=== PATIENT | male | born 2000 | race Caucasian/White ===

== ENCOUNTER 2021-04-02 04:58 | Inpatient (IN) | payer OTHER ==
[~2021-04-02] VITALS: Ht 167.6 cm; Wt 64.6 kg
[2021-04-02] MEDS ORDERED: NS 1,000 ML IV ONE ×3 (07:30→09:25)
[2021-04-02] MEDS ORDERED: ONDANSETRON 4MG/2ML VIAL IV ONE ×2 (07:30→07:50)
[2021-04-02 08:48] LABS: BASO # 0.1 10^3/uL (0.0-0.2); BASO % 0.3 % (0.0-1.0); HEMATOCRIT 47.7 % (42.0-52.0); HEMOGLOBIN 15.7 g/dl (13.5-17.5); LYMPH # 0.8 10^3/uL (1.5-5.0); LYMPH % 4.5 % (24.0-44.0); MEAN CORPUSCULAR HEMOGLOBIN 26.7 pg (27.0-33.0); MEAN CORPUSCULAR HGB CONC 32.9 g/dl (32.0-36.5); MEAN CORPUSCULAR VOLUME 81.3 fl (80.0-96.0); MONO # 0.8 10^3/uL (0.0-0.8); MONO % 4.3 % (2.0-8.0); NEUTROPHILS # 16.6 10^3/uL (1.5-8.5); NEUTROPHILS % 90.4 % (36.0-66.0); PLATELET COUNT, AUTOMATED 275 10^3/uL (150-450); RED BLOOD COUNT 5.87 10^6/uL (4.30-6.10); WHITE BLOOD COUNT 18.4 10^3/uL (4.0-10.0)
[2021-04-02 09:27] LABS: ALBUMIN 4.3 GM/DL (3.2-5.2); ALT/SGPT 27 U/L (12-78); BILIRUBIN,DIRECT < 0.1 MG/DL (0.0-0.2); BILIRUBIN,TOTAL 0.9 MG/DL (0.2-1.0); LIPASE 80 U/L (73-393); TOTAL PROTEIN 8.7 GM/DL (6.4-8.2)
[2021-04-02] MEDS ORDERED: ISOVUE-370 76% 100ML VIAL As Ordered ONE (10:11)
--- NOTE | 2021-04-02 11:23 | REP ---
INDICATION: elev wbc; vomiting/diarrhea/pain. COMPARISON: None TECHNIQUE: Axial contrast-enhanced images from the lung bases to the pubic symphysis using 100 cc Isovue 370 intravenous contrast material. Coronal and sagittal reformations obtained. This CT examination was performed using the following dose reduction techniques: Automated exposure control, adjustment of mA and/or kv according to the patient's size, and the use of iterative reconstruction technique. FINDINGS: Liver, spleen/splenules, pancreas, gallbladder, bilateral adrenal glands and kidneys are normal. The enteric system including stomach, small, and large bowel appears normal. No evidence for obstruction or acute inflammatory process. Normal terminal ileum and appendix are identified in the right lower quadrant. Pelvis demonstrates normal bladder and age-appropriate prostate/seminal vesicles. No ascites. No free air. No intraperitoneal or retroperitoneal adenopathy. Abdominal aorta and vasculature appear normal. Musculoskeletal structures are intact and without acute osseous abnormality. IMPRESSION: No acute abdominopelvic pathology appreciated. <Electronically signed by Andrea Tran > 04/02/21 [id number]
[2021-04-02] MEDS ORDERED: LevoFLOXacin IV 750 MG in IV 1 EA IV ONE (11:50)
[2021-04-02] MEDS ORDERED: NS 1,000 ML IV SCH (11:50)
[2021-04-02] MEDS ORDERED: ONDANSETRON 4MG/2ML VIAL IV PRN (12:40)
[2021-04-02] MEDS ORDERED: HOME MED LIST COMPLETE! XX SCH (12:50)
--- NOTE | 2021-04-02 12:55 | HPEPDOC ---
[facility] Medical History & Physical Date of Admission Apr 02, 2021 Date of Service: Apr 02, 2021 History and Physical Chief complaint: Presented to the ER with nausea, vomiting and diarrhea since History of present illness: Patient is a 20-year-old male presented to the emergency room with nausea, vomiting, diarrhea since . Patient has reported that since hes experienced greater than 10 episodes of vomiting. Patient is vomitus as green without any evidence of blood. Patient also reports associated diarrhea about 2 times a day, described as watery/green without any evidence of blood, Patient also reports associated upper abdominal pain described as 7/10 aching occurring intermittently. No alleviating factors and aggravated with food. Patient denies any chest pain, shortness breath, palpitations or cough. Denies any urinary discomfort. He has reported chills at home without any document it fevers. Reports a poor appetite recently. Past Medical History: Denies any past medical history Past Surgical History: Denies any past surgical history Allergies: See below Medications: See below Family History: - She reports that his maternal grandmother has a history of [address] [place] breast cancer Social History: - Denies the use of alcohol or illicit drugs; patient reports that he is a smoker - Denies recent travel or sick contacts - [place] - Occupation; patient is part of the [employer] ([employer]) Review of Systems: 10 point review of systems complete, all negative otherwise stated in HPI Physical exam: - Vitals: BP [149/67], HR [71], RR [20], Sat [100%RA], Temp [97.2F] - General: Lying in bed, Speaking in full sentences, AAOx3 - HEENT: NC, AT, PERRLA - CVS: RRR, +S1S2, - Murmurs / rubs / gallops - Lungs: Fair air entry bilaterally, No appreciable wheezing / rales / rhonchi - Abdomen: Soft, Non-distended, Epigastric tenderness - Extremities: No lower extremity edema, No calf tenderness - Neuro: No focal motor or sensory deficit - Skin: No visible rashes Labs: See below Imaging: CT abdomen / pelvis 04/02: No acute abdominopelvic pathology appreciated. EKG: See below Assessment and Plan: Nausea / Vomiting /Diarrhea - likely 2/2 viral gastroenteritis, possible bacterial - Patient presented to ER with complaints of the above since - Patient is hemodynamically stable and afebrile - Physical reveals epigastric tenderness - Leukocytosis with neutrophil predominance; lactic acidosis - Imaging noted above - Will check GI Panel - Patient was given dose of Levofloxacin in the ER - Will continue antibiotics based on GI panel Leukocytosis - likely 2/2 above - Respiratory panel negative - Will check UA / Blood cultures / PCT - See above Lactic acidosis - likely 2/2 dehydration - s/p 2 L NS in the ER - Will repeat lactic acid now - c/w Normal saline DVT prophylaxis - Will start Heparin Vital Signs Vital Signs Date Time Temp Pulse Resp B/P (MAP) Pulse Ox O2 Delivery O2 Flow Rate FiO2 04/02/21 04:58 97.2 71 20 149/67 (94) 100 Room Air Laboratory Data Labs 24H Laboratory Tests 2 04/02/21 07:50: Immature Granulocyte % (Auto) 0.5, Neutrophils (%) (Auto) 90.4H, Lymphocytes (%) (Auto) 4.5L, Monocytes (%) (Auto) 4.3, Eosinophils (%) (Auto) 0.0, Basophils (%) (Auto) 0.3, Neutrophils # (Auto) 16.6H, Lymphocytes # (Auto) 0.8L, Monocytes # (Auto) 0.8, Eosinophils # (Auto) 0.0, Basophils # (Auto) 0.1, Nucleated Red Blood Cells % (auto) 0.0, Total Bilirubin 0.9, Direct Bilirubin < 0.1, Aspartate Amino Transf (AST/SGOT) 36, Alanine Aminotransferase (ALT/SGPT) 27, Alkaline Phosphatase 72, Total Protein 8.7H, Albumin 4.3, Albumin/Globulin Ratio 1.0, Lipase 80 04/02/21 08:36: POC Glucose (Misc Panel) 142H, POC Sodium (Misc Panel) 138, POC Potassium (Misc Panel) 4.7, POC Chloride (Misc Panel) 105, POC Total CO2 (Misc Panel) 25.0, POC Blood Urea Nitrogen (Misc Panel 20, POC Ionized Calcium (Misc Panel) 4.3L, POC Creatinine (Misc Panel) 1.0, POC Hematocrit (Misc Panel) 49.0 04/02/21 08:47: POC Lactate (Misc Panel) 3.06*H CBC/BMP Laboratory Tests 04/02/21 07:50 Microbiology Microbiology 04/02/21 Respiratory Virus Panel (PCR) ([facility]) - Final, Complete Home Medications No Active Prescriptions or Reported Meds Allergies Coded Allergies: amoxicillin (Verified Allergy, Intermediate, rash, 04/02/21) clavulanic acid (Verified Allergy, Intermediate, rash, 04/02/21) NATALY YANG MD Apr 02, 2021 12:55
[2021-04-02] MEDS: HEPARIN SOD (PORCINE) 5000UNITS/ML 1ML VIAL/SYRINGE SC SCH ×2 (14:00→22:09)
[2021-04-02 14:11] LABS: ALT/SGPT 21 U/L (12-78); BLOOD UREA NITROGEN 12 MG/DL (7-18); CALCIUM LEVEL 9.4 MG/DL (8.5-10.1); CARBON DIOXIDE LEVEL 22 MEQ/L (21-32); CHLORIDE LEVEL 106 MEQ/L (98-107); CREATININE FOR GFR 1.13 MG/DL (0.70-1.30); GLUCOSE, FASTING 114 MG/DL (70-100); SODIUM LEVEL 138 MEQ/L (136-145); TOTAL PROTEIN 7.9 GM/DL (6.4-8.2)
[2021-04-02] MEDS: NS 1,000 ML IV SCH ×2 (15:51→22:09)
[2021-04-02] MEDS: PANTOPRAZOLE 40MG VIAL (C9113 PER 1) IV SCH (16:10)
[2021-04-02 18:00] VITALS: BP 151/82
[2021-04-02] MEDS: METOCLOPRAMIDE INJ 10MG/2ML VIAL (J2765 PER 1) IV PRN (19:38)
[2021-04-02] MEDS: ACETAMINOPHEN TAB 650MG DOSE (2X325MG) PO PRN (19:38)
[2021-04-02 20:00] VITALS: BP 123/54
[2021-04-02] MEDS ORDERED: PROMETHAZINE INJ 25 MG/ML VIAL (J2550) IV ONE (22:50)
[2021-04-02] MEDS ORDERED: KETOROLAC 30 MG/ML 1ML VIAL IV ONE (22:50)
[2021-04-03] MEDS: PANTOPRAZOLE 40MG VIAL (C9113 PER 1) IV SCH ×2 (00:43→12:50)
[2021-04-03 04:52] VITALS: BP 145/77
[2021-04-03] MEDS: METOCLOPRAMIDE INJ 10MG/2ML VIAL (J2765 PER 1) IV PRN (06:04)
[2021-04-03] MEDS: ACETAMINOPHEN TAB 650MG DOSE (2X325MG) PO PRN ×2 (06:04→20:14)
[2021-04-03] MEDS: HEPARIN SOD (PORCINE) 5000UNITS/ML 1ML VIAL/SYRINGE SC SCH ×3 (06:04→22:00)
[2021-04-03 06:25] LABS: BASO # 0.1 10^3/uL (0.0-0.2); BASO % 0.4 % (0.0-1.0); EOS % 0.1 % (0.0-3.0); HEMATOCRIT 39.8 % (42.0-52.0); LYMPH # 1.9 10^3/uL (1.5-5.0); MEAN CORPUSCULAR HGB CONC 33.4 g/dl (32.0-36.5); MEAN CORPUSCULAR VOLUME 80.7 fl (80.0-96.0); MONO % 8.8 % (2.0-8.0); NEUTROPHILS # 8.6 10^3/uL (1.5-8.5); NEUTROPHILS % 74.4 % (36.0-66.0); PLATELET COUNT, AUTOMATED 238 10^3/uL (150-450); RED BLOOD COUNT 4.93 10^6/uL (4.30-6.10); WHITE BLOOD COUNT 11.6 10^3/uL (4.0-10.0)
[2021-04-03 06:29] LABS: HEMOGLOBIN 13.3 g/dl (13.5-17.5)
[2021-04-03 06:45] LABS: BLOOD UREA NITROGEN 14 MG/DL (7-18); CARBON DIOXIDE LEVEL 24 MEQ/L (21-32); CHLORIDE LEVEL 109 MEQ/L (98-107); CREATININE FOR GFR 1.16 MG/DL (0.70-1.30); GLUCOSE, FASTING 107 MG/DL (70-100); SODIUM LEVEL 140 MEQ/L (136-145)
[2021-04-03 06:46] LABS: MAGNESIUM LEVEL 1.9 MG/DL (1.4-2.0)
[2021-04-03] MEDS: NS 1,000 ML IV SCH ×2 (08:40→18:31)
[2021-04-03] MEDS: PROMETHAZINE INJ 25 MG/ML VIAL (J2550) IV PRN (12:50)
[2021-04-03 14:00] VITALS: BP 142/75
--- NOTE | 2021-04-03 16:43 | IPNPDOC ---
Text Note Date of Service The patient was seen on 04/03/21. NOTE Subjective: -Persisting N/V, two episodes of emesis this AM per nursing report were non- bloody and non-bilious. No reports of further diarrhea, afebrile -Patient asked nursing to turn off IV fluids as he believes NS is making him nauseous, discussed that this is unlikely and would ideally want to continue hydration until emesis resolves and PO improves Objective: Vitals: please see below General: NAD, well appearing young man HEENT: NCAT, PERRLA, EOMI, MMM CVS: RRR, +S1S2, no m/r/g noted Lungs: CTAB, breathing comfortably on room air, speaking in full sentences, no appreciable wheezing / rales / rhonchi Abdomen: Soft, non-distended, mild epigastric tenderness on palpation, normoactive sounds Extremities: No lower extremity edema, No calf tenderness, WWP Neuro: No focal motor or sensory deficit Skin: No visible rashes Labs: Reviewed WBC 11.6 hgb 13.3 platelets 238 na 140 K 4 Cr 1.16 mag 1.9 pending GI panel Imaging: CT abdomen / pelvis 04/02: No acute abdominopelvic pathology appreciated. Assessment: 20 yo M without significant medical history who was previously in excellent health who presented with acute N/V/D and abdominal pain with thus far workup n otable for leukocytosis that is improving with otherwise benign imaging and workup thus far, with persisting N/V likely secondary to gastroenteritis likely from viral origin. Nausea / Vomiting /Diarrhea - likely 2/2 viral gastroenteritis, unlikely bacterial - 5d of symptoms thus far, with N/V, now improving diarrhea, afebrile and no GI imaging abnormalities - s/p 1 dose of levaquin in the ED, will continue holding further antibiotics, unlikely warranted, will monitor - follow up GI Panel - Respiratory panel was negative - UA was bland and blood cultures thus far were negative - Q8HP promethazine and reglan for refractory nausea. Ondansetron had no effect Lactic acidosis - 2/2 dehydration, resolved - s/p 2 L NS in the ER and on NS DVT prophylaxis - Heparin 5000u Q8H VS,Fishbone, I+O VS, Fishbone, I+O Laboratory Tests 04/02/21 07:50 04/02/21 13:28 04/03/21 05:58 Vital Signs Date Time Temp Pulse Resp B/P (MAP) Pulse Ox O2 Delivery O2 Flow Rate FiO2 04/03/21 04:52 97.6 77 20 145/77 (99) 97 Room Air I&O- Last 24 Hours up to 6 AM 04/03/21 05:59 Intake Total 2770 ml Output Total 600 ml Balance 2170 ml NYASIA SANTAMARIA MD Apr 03, 2021 07:59
--- NOTE | 2021-04-03 18:00 | ECGEPIP ---
[facility] Test Date: 2021-04-02 Pat Name: ERICKA COPELAND Department: Room: [facility] Gender: Male [employer] Equipment [employer]: ED : 2000 Requested By: NATALY YANG Order Number: [id number] Reading MD: Kia Barba Measurements Intervals Deputy Rate: 68 P: -57 MS: 142 QRS: 60 QRSD: 88 T: 8 QT: 390 QTc: 414 Interpretive Statements Ectopic atrial rhythm Normal QT interval No prior Otherwise normal EKG Electronically Signed on 04-03-2021 18:00:28 EDT by Kia Barba
[2021-04-04] MEDS: PANTOPRAZOLE 40MG VIAL (C9113 PER 1) IV SCH (00:27)
[2021-04-04] MEDS: NS 1,000 ML IV SCH ×2 (03:55→09:27)
[2021-04-04] MEDS: METOCLOPRAMIDE INJ 10MG/2ML VIAL (J2765 PER 1) IV PRN (04:11)
[2021-04-04] MEDS: ACETAMINOPHEN TAB 650MG DOSE (2X325MG) PO PRN (04:16)
[2021-04-04] MEDS: HEPARIN SOD (PORCINE) 5000UNITS/ML 1ML VIAL/SYRINGE SC SCH (05:15)
[2021-04-04 06:42] VITALS: BP 138/80
[2021-04-04 06:42] LABS: BASO # 0.1 10^3/uL (0.0-0.2); BASO % 0.6 % (0.0-1.0); EOS % 0.3 % (0.0-3.0); HEMATOCRIT 41.6 % (42.0-52.0); HEMOGLOBIN 13.7 g/dl (13.5-17.5); LYMPH # 1.9 10^3/uL (1.5-5.0); LYMPH % 16.1 % (24.0-44.0); MEAN CORPUSCULAR HEMOGLOBIN 26.7 pg (27.0-33.0); MEAN CORPUSCULAR HGB CONC 32.9 g/dl (32.0-36.5); MEAN CORPUSCULAR VOLUME 81.1 fl (80.0-96.0); MONO # 1.3 10^3/uL (0.0-0.8); MONO % 11.4 % (2.0-8.0); NEUTROPHILS # 8.4 10^3/uL (1.5-8.5); NEUTROPHILS % 71.3 % (36.0-66.0); PLATELET COUNT, AUTOMATED 240 10^3/uL (150-450); RED BLOOD COUNT 5.13 10^6/uL (4.30-6.10); WHITE BLOOD COUNT 11.8 10^3/uL (4.0-10.0)
[2021-04-04 07:02] LABS: BLOOD UREA NITROGEN 18 MG/DL (7-18); CALCIUM LEVEL 9.2 MG/DL (8.5-10.1); CARBON DIOXIDE LEVEL 25 MEQ/L (21-32); CHLORIDE LEVEL 105 MEQ/L (98-107); CREATININE FOR GFR 1.12 MG/DL (0.70-1.30); GLUCOSE, FASTING 104 MG/DL (70-100); MAGNESIUM LEVEL 2.2 MG/DL (1.4-2.0); POTASSIUM SERUM 3.9 MEQ/L (3.5-5.1); SODIUM LEVEL 139 MEQ/L (136-145)
[2021-04-04] MEDS: PROMETHAZINE INJ 25 MG/ML VIAL (J2550) IV PRN (09:27)
[2021-04-04] MEDS ORDERED: ONDA4TAB6 PO (10:19)
--- NOTE | 2021-04-04 12:41 | DS.PDOC ---
Discharge Summary General Date of Admission Apr 02, 2021 at 12:37 Date of Discharge 04/04/2021 Attending Physician: NYASIA SANTAMARIA MD Discharge Summary PROCEDURES PERFORMED DURING STAY: None ADMITTING DIAGNOSES: Nausea, vomiting, diarrhea DISCHARGE DIAGNOSES: Likely viral gastroenteritis lactic acidosis Dehydration COMPLICATIONS/CHIEF COMPLAINT: Diarrhea, Leukocytosis, Vomiting, Elevated Lactic. HISTORY OF PRESENT ILLNESS: 20-year-old M who presented to the emergency room with nausea, vomiting, diarrhea for 5d reporting greater than 10 episodes of non bloody vomiting with 2 times a day watery/green diarrhea. HOSPITAL COURSE: In the ED, he was normotensive, afebrile and had noted leukocytosis and lactic acidosis on labs. CT A/P was grossly normal. He was admitted for likely gastroenteritis and started on antiemetics, fluids and had 1 dose of levaquin that was stopped. He had nomore episodes of emesis but had significant nausea and had no diarrhea or any BMs in the two days he was in the hospital. He is now being discharged home with ODT zofran and close PCP follow up. DISCHARGE MEDICATIONS: Please see below. ALLERGIES: Please see below. PHYSICAL EXAMINATION ON DISCHARGE: VITAL SIGNS: Please see below. General: NAD, well appearing young man HEENT: NCAT, PERRLA, EOMI, MMM CVS: RRR, +S1S2, no m/r/g noted Lungs: CTAB, breathing comfortably on room air, speaking in full sentences, no appreciable wheezing / rales / rhonchi Abdomen: Soft, non-distended, mild epigastric tenderness on palpation, normoactive sounds Extremities: No lower extremity edema, No calf tenderness, WWP Neuro: No focal motor or sensory deficit Skin: No visible rashes LABORATORY DATA: Please see below. IMAGING: CT abdomen / pelvis 04/02: No acute abdominopelvic pathology appreciated. PROGNOSIS: Good ACTIVITY: As tolerated DIET: regular, as tolerated DISCHARGE PLAN: Home with PRN ODT zofran for nausea and close PCP follow up within 7d DISPOSITION: Home DISCHARGE INSTRUCTIONS: Home with PRN ODT zofran for nausea and close PCP follow up within 7d ITEMS TO FOLLOWUP ON ON OUTPATIENT: Resolution of nausea and symptoms of gastroenteritis DISCHARGE CONDITION: Stable TIME SPENT ON DISCHARGE: 36 minutes. Vital Signs/I&Os Vital Signs Date Time Temp Pulse Resp B/P (MAP) Pulse Ox O2 Delivery O2 Flow Rate FiO2 04/04/21 06:42 98.6 65 18 138/80 (99) 100 Room Air I&O- Last 24 Hours up to 6 AM 04/04/21 05:59 Intake Total 420 ml Output Total 0 ml Balance 420 ml Laboratory Data Labs 24H Laboratory Tests 2 04/04/21 06:18: Immature Granulocyte % (Auto) 0.3, Neutrophils (%) (Auto) 71.3H, Lymphocytes (%) (Auto) 16.1L, Monocytes (%) (Auto) 11.4H, Eosinophils (%) (Auto) 0.3, Basophils (%) (Auto) 0.6, Neutrophils # (Auto) 8.4, Lymphocytes # (Auto) 1.9, Monocytes # (Auto) 1.3H, Eosinophils # (Auto) 0.0, Basophils # (Auto) 0.1, Nucleated Red Blood Cells % (auto) 0.0, Anion Gap 9, Calcium Level 9.2, Magnesium Level 2.2H CBC/BMP Laboratory Tests 04/04/21 06:18 Microbiology Microbiology 04/02/21 Blood Culture - Preliminary, Resulted No growth after 24 hours . All specim... 04/02/21 Blood Culture - Preliminary, Resulted No growth after 24 hours . All specim... 04/02/21 Respiratory Virus Panel (PCR) ([facility]) - Final, Complete Discharge Medications Scheduled PRN Ondansetron (Ondansetron Odt) 4 Mg Tab.rapdis, 1 TAB PO Q6-8HP PRN for nausea/vomiting Allergies Coded Allergies: amoxicillin (Verified Allergy, Intermediate, rash, 04/02/21) clavulanic acid (Verified Allergy, Intermediate, rash, 04/02/21) NYASIA SANTAMARIA MD Apr 04, 2021 10:19
== END 2021-04-04 13:20 | disposition home or self-care (01) | DRG 392 ==
LOC: M ED 04:58 → M ED INP 12:37 → ENRESERV 16:35 → M MS5PR 18:00
PROVIDERS: ADMIT Internal Medicine; ATTEND Internal Medicine
DX: K52.9 Noninfective gastroenteritis and colitis, unspecified (principal); E87.2 Acidosis; E86.0 Dehydration; Z20.822 Contact with and (suspected) exposure to COVID-19; Z88.1 Allergy status to other antibiotic agents; Z88.8 Allergy status to other drugs, medicaments and biological substances